=== PATIENT | female | born 1985 | race Hispanic/Latino ===

== ENCOUNTER 2016-10-25 08:30 | Inpatient (IN) | payer BC ==
[2016-10-25 09:05] VITALS: BMI 29.7
[2016-10-25] MEDS ORDERED: Lactated Ringer's 1,000 ML IV SCH ×3 (09:10→14:05)
[2016-10-25] MEDS ORDERED: Lactated Ringer's 2,000 ML IV SCH ×2 (09:15→10:15)
[2016-10-25 09:43] LABS: HEMOGLOBIN 9.1 g/dL (12.0-16.0); MEAN CELL VOLUME 77.9 fl (81.0-99.0); MEAN CORPUSCULAR HEMOGLOBIN 25.3 pg (27.0-31.0); MEAN CORPUSCULAR HGB CONC 32.5 g/dL (33.0-37.0); RBC 3.59 Mil/uL (3.80-5.20); RED CELL DISTRIBUTION WIDTH 16.3 % (11.5-14.5); WHITE BLOOD COUNT 9.4 K/uL (4.8-10.8)
[2016-10-25] MEDS ORDERED: Lidocaine 1% Inj (20ml) ONE (10:18)
[2016-10-25] MEDS ORDERED: Oxytocin 30 units/LR 500ML 30 U/500 ML BAG IV ONE (11:20)
--- NOTE | 2016-10-25 11:27 | OBHP ---
Datetime: 10/25/2016 11:21 Admit Comment, IP Provider: The patient is 2 para 1 estimated gestational age 39 weeks patie nt presents to labor and delivery complaining of pelvic pressure discomfort several days duration. Maximino vanessa reports good movement no vaginal bleeding or leakage fluid. care unremarkable Past medical history none Past surgical history none Drug Allergies Social History Denies Alcohol Tobacco Use Care Unremarkable Review of Systems Patient Denies Headache Chest Pain Shortness of Breath Palpitations Dysuria or V aginal Bleeding Constipation He Cold Intolerance She Is Reasonably Musculoskeletal or Neurological Co mplaints Vital Signs Stable Afebrile Physical Exam See Notes Intrauterine at 39 Weeks Labor Admit to L_D Adequate Pelvis,vertex Presentation, Estimated Weight 7-1/2 Pounds Routine Labs, External Monitor Pelvic Type - PN: Adequate Extremities - PN: Normal Abdomen - PN: Normal Back - PN: Normal Breast - PN: Not Done Lungs - PN: Normal Heart - PN: Normal Thyroid - PN: Normal Neurologic - PN: Normal HEENT - PN: Normal General - PN: Normal Weight - Estimated: 8 Presentation-Admit: Vertex FHR - Baseline A Provider: 145 Gestation - Est Wks by US: 39.0 Pool Provider: Negative Vital Signs Provider: Reviewed NICHD Variability Prov Fetus A: Moderate 6-25bpm NICHD Accel Fetus A IP Provider: [id number] FHR Category Provider Fetus A: Category I NICHD Decel Fetus A IP Provider: None Dilatation, Provider: 4 Effacement, Provider: 74 Station, Provider: -2 Genitourinary Exam: Normal DTRs - PN: Normal
[2016-10-25] MEDS ORDERED: Oxytocin 30 units/LR 500ML 30 U/500 ML BAG IV SCH ×2 (11:45)
[2016-10-25] MEDS ORDERED: Fentanyl/Bupivacaine HCl 250 ML EPI ONE (13:41)
[2016-10-25] MEDS ORDERED: Bupivacaine HCl 0.25% PF (10 ml) Inj ONE (13:41)
--- NOTE | 2016-10-25 17:36 | OBDS ---
MATERNAL INFORMATION Delivery Anesthesia: Epidural Provider Comments: Delivered a live baby girl at 5:15 PM the baby was suctioned on the perineum and transferred to the maternal chest. Delayed cord clamping was performed the cord was clamped and cut a nd 3 vessels noted cord blood was obtained and sent to the lab. The placenta was delivered at 5:21 PM intact the estimated blood loss was approximately 100 mL there was a first-degree laceration was rep aired with 2-0 repeat. The mother tolerated the procedure well baby went to the [facility] wit h Apgars of 9 and 9 weighing 4075 g LABOR SUMMARY EDC: 11/02/2016 00:00 No. Babies in Womb: 1 Attempted: No Labor Anesthesia: Epidural LABOR INFORMATION Reason for Induction: Other Onset of Labor: 10/25/2016 12:30 Oxytocin: Augmentation Group B Beta Strep: Negative Antibiotics # of Doses: n/a Antibiotics Time of Last Dose: n/a Steroids Given: None Reason Steroids Not Administered: Not Applicable Other Reason Not Administered: n/a MEMBRANES Membranes Rupture Method: Artificial Rupture of Membranes: 10/25/2016 08:49 Amniotic Fluid Color: Clear Amniotic Fluid Amount: None Amniotic Fluid Odor: Normal VAGINAL DELIVERY Episiotomy: None Laceration Extension: First Degree Laceration Type: Vaginal Laceration Repair: Yes Sponge Count Correct: Yes Sharps Count Correct: Yes BABY A INFORMATION Born in Route : No : N/A INFANT INFORMATION BABY A Gestational Age at Delivery: 38.6 IDENTIFICATION/MEDS BABY A ID Band Number: [id number]
--- NOTE | 2016-10-25 17:38 | OBADHP ---
Datetime: 10/25/2016 11:21 Admit Comment, IP Provider: The patient is 2 para 1 estimated gestational age 39 weeks patie nt presents to labor and delivery complaining of pelvic pressure discomfort several days duration. Maximino vanessa reports good movement no vaginal bleeding or leakage fluid. care unremarkable Past medical history none Past surgical history none Drug Allergies Social History Denies Alcohol Tobacco Use Care Unremarkable Review of Systems Patient Denies Headache Chest Pain Shortness of Breath Palpitations Dysuria or V aginal Bleeding Constipation He Cold Intolerance She Is Reasonably Musculoskeletal or Neurological Co mplaints Vital Signs Stable Afebrile Physical Exam See Notes Intrauterine at 39 Weeks Labor Admit to L_D Adequate Pelvis,vertex Presentation, Estimated Weight 7-1/2 Pounds Routine Labs, External Monitor Pelvic Type - PN: Adequate Extremities - PN: Normal Abdomen - PN: Normal Back - PN: Normal Breast - PN: Not Done Lungs - PN: Normal Heart - PN: Normal Thyroid - PN: Normal Neurologic - PN: Normal HEENT - PN: Normal General - PN: Normal Weight - Estimated: 8 Presentation-Admit: Vertex FHR - Baseline A Provider: 145 Gestation - Est Wks by US: 39.0 Pool Provider: Negative Vital Signs Provider: Reviewed IP Chief Complaint: Uterine contractions; Maternal discomfort NICHD Variability Prov Fetus A: Moderate 6-25bpm NICHD Accel Fetus A IP Provider: [id number] FHR Category Provider Fetus A: Category I NICHD Decel Fetus A IP Provider: None Dilatation, Provider: 4 Effacement, Provider: 74 Station, Provider: -2 Genitourinary Exam: Normal DTRs - PN: Normal EGA AdmitDate IP: 38.6 IP Admit Plan: Admit to unit
[2016-10-25] MEDS ORDERED: Benzocaine/Menthol SPRAY TOP PRN (18:04)
[2016-10-25] MEDS ORDERED: Oxycodone/Acetaminophen 5/325 mg Tab PO PRN ×2 (18:04)
--- NOTE | 2016-10-26 06:35 | OBPPN ---
Datetime: 10/26/2016 06:32 PP Pain Prov: Within normal limits PP Nausea Prov: Denies PP Flatus Prov: Yes PP Breasts Prov: Not Done PP Heart Prov: Normal PP Lungs Prov: Normal PP Abdomen/Uterus Prov: Normal PP Lochia Prov: Normal PP Vulva/Perineum Prov: Not Done PP CVA Tenderness Prov: Normal PP Extremities Prov: Normal PP Progress Prov: Normal PP Impression Prov: Normal progression PP Plan Prov: Continue present management PP Progress Note Prov: Patient doing well reports minimal lochia discomfort controlled with Motrin a nd without difficulty tolerating diet Vital signs stable afebrile Uterus firm below the umbilicus Extremities no Homans Status post normal spontaneous vaginal delivery day #1 Motrin as needed, regular diet, anticipate discharge in a.m. Vital Signs Provider PP: Reviewed
[2016-10-26 07:56] LABS: HEMOGLOBIN 8.6 g/dL (12.0-16.0); MEAN CORPUSCULAR HEMOGLOBIN 25.4 pg (27.0-31.0); MEAN CORPUSCULAR HGB CONC 32.2 g/dL (33.0-37.0); RBC 3.38 Mil/uL (3.80-5.20); RED CELL DISTRIBUTION WIDTH 16.4 % (11.5-14.5); WHITE BLOOD COUNT 11.1 K/uL (4.8-10.8)
[2016-10-26] MEDS ORDERED: Oxycodone/Acetaminophen 5/325 mg Tab PO PRN ×2 (08:11)
[2016-10-26] MEDS ORDERED: Benzocaine/Menthol SPRAY TOP PRN (08:11)
--- NOTE | 2016-10-27 10:09 | OBDCSUM ---
Datetime: 10/27/2016 09:14 Discharged to, Provider: Home Follow up at, Provider: [facility] Disch Instr Activity: Normal activity Disch Instr Diet: Regular Discharge Instructions, Provider: Routine instructions given Discharge Diagnosis, Provider: Term Delivered Discharge Time: 10/27/2016 10:08 Follow up in weeks, Provider: 6 weeks Disch Referrals: None Contraception discussed, Prov: Yes Disch Activity Restrictions: No sexual activity; Nothing in vagina - [place], tampons, douche
--- NOTE | 2016-10-27 10:09 | OBPPN ---
Datetime: 10/27/2016 10:06 PP Pain Prov: Within normal limits PP Nausea Prov: Denies PP Flatus Prov: Yes PP Breasts Prov: Normal PP Heart Prov: Normal PP Lungs Prov: Normal PP Abdomen/Uterus Prov: Normal PP Lochia Prov: Normal PP Vulva/Perineum Prov: Normal PP CVA Tenderness Prov: Normal PP Extremities Prov: Normal PP Comments Phys Exam Prov: Fundus firm under umbilicus PP Impression Prov: Normal progression PP Plan Prov: Continue present management; Discharge PP Progress Note Prov: Patient denies CP, no SOB, no N/V, tolerating PO diet, ambulating/voiding wel l, mild lochia, abdominal pain tolerable with meds A/P PPD #2 1. Discharge home 2. Discharge instructions reviewed with patient IP PP Procedures: None Vital Signs Provider PP: Reviewed; Within Normal Limits
[2016-10-28 07:26] VITALS: BP 128/85; PULSE 77; RESP 20; TEMP 98.6; O2SAT 100
== END 2016-10-27 22:20 | disposition home or self-care (01) | DRG 775 ==
LOC: H.EROB2 08:30 → H.L&D 09:06 → H.OB/GYN 20:00
PROVIDERS: ADMIT Obstetrics & Gynecology Gynecology; ATTEND Obstetrics & Gynecology Gynecology
PROC: 0HQ9XZZ Repair Perineum Skin, External Approach (ICD-10-PCS; principal; 2016-10-25)
PROC: 10E0XZZ Delivery of Products of Conception, External Approach (ICD-10-PCS; 2016-10-25)
PROC: 4A1HXCZ Monitoring of Products of Conception, Cardiac Rate, External Approach (ICD-10-PCS; 2016-10-25)
DX: O70.0 First degree perineal laceration during delivery (principal); Z37.0 Single live birth; Z3A.38 38 weeks gestation of pregnancy